=== PATIENT | male | born 1975 | race Caucasian/White ===

== ENCOUNTER → 2020-08-08 14:47 | Outpatient (BNVA) | payer MEDICARE, MEDICAID, SELFPAY | PROVIDERS: Family Provider Family Medicine; PCP Family Medicine; Visit Provider Psychiatry & Neurology Psychiatry | DX: F43.12 Post-traumatic stress disorder, chronic (principal); F12.21 Cannabis dependence, in remission; F15.21 Other stimulant dependence, in remission | CPT/HCPCS: 99204 ==